=== PATIENT | female | born 1940 | race Caucasian/White ===

== ENCOUNTER 2018-07-25 16:48 | Emergency (ER) | payer OTHER ==
[2018-07-25] MEDS ORDERED: LABETALOL HCL 5 MG/ML 20 ML MDV IVP ONE (17:28)
--- NOTE | 2018-07-25 17:41 | EDPHY ---
H & P Time Seen by Provider: 07/25/18 17:25 HPI/ROS: HPI Chest pain. High blood pressure. 77-year-old female by private vehicle with her . This patient reports that after eating lunch at approximately 1:00 p.m. Today she developed a squeezing substernal chest pain with radiation up into her jaw. She reports that this lasted about 30 min and then resolved. She reports that her blood pressure has been unusually high this afternoon. She denies any other associated signs or symptoms. She has a prior history of hypertension and has been on lisinopril for 7 years but off of that for the last 6 months. She has a family history of coronary artery disease. Denies any personal history of coronary artery disease. No other risk factors except for age and hypertension. She reports her blood pressures were in the 200 systolic at home. ROS: Constitutional: No fever, no chills. No weakness. Eyes: No discharge. No changes in vision. ENT: No sore throat. No nasal congestion or rhinorrhea. Respiratory: No cough. No shortness of breath. Cardiac: As above, no palpitations. Gastrointestinal: No abdominal pain, no vomiting, no diarrhea. Genitourinary: No hematuria. No dysuria or increased frequency with urination. Musculoskeletal: No back pain. No neck pain. No myalgias or arthralgias. Skin: No rashes. Neurological: No headache. No focal weakness or altered sensation. Past medical history: As above. Polymyalgia. Social history: Nonsmoker. Here with her . No alcohol. Physical Exam: General Appearance: Alert, no distress. This patient is responding to questions appropriately and in full sentences. This patient appears well- hydrated and well-nourished. Eyes: Pupils equal and round no pallor or injection. No lid edema, erythema or injection. Respiratory: There are no retractions, lungs are clear to auscultation with good air movement bilaterally. Cardiovascular: Regular rate and rhythm. No murmur appreciated. Gastrointestinal: Abdomen is soft and nontender, no masses, bowel sounds normal. No focal tenderness at McBurney's point. No Yuan sign. Neurological: Motor sensory function is grossly intact. Cranial nerves are normal. Gait is normal. Skin: Warm and dry, no rashes. Musculoskeletal: Neck is supple and nontender. Extremities are symmetrical. No lower extremity edema. No significant lower extremity edema. All joints range without pain or impingement. Psychiatric: No agitation. No depression. Database: EKG: EKG time is 5:13 p.m.; EKG shows a sinus rhythm with a ventricular rate of 87, there is an underlying right bundle branch block. The [place], QT intervals are within normal limits. There are no ST-T wave changes indicative of ischemic or injury pattern. No evidence of right heart strain. Interpreted by me. Imaging: Chest x-ray AP portable; probable large heart. Questionable pulmonary nodule measuring 11 mm verses nipple. No evidence of infiltrate or pneumothorax. No acute cardiopulmonary disease process noted. Discussed with staff radiologist Dr. Kashif Matta who recommends a PA and lateral with nipple markers. This will be ordered. Procedures: Emergency department course: Triage vital signs reviewed. Initial blood pressure 213/100. Vital signs otherwise normal. IV was placed. She was placed on a ekg monitor tech. EKG obtained and reviewed by myself. She is currently asymptomatic. She will be given IV labetalol at 20 mg every 10 min up to x3 to target blood pressure of 160-170 systolic. She currently does not have any chest pain. She was given 324 mg of chewed aspirin. Heart score of 4. Moderate risk. 6:00 p.m., patient's blood pressure is 181/90. She has received 20 mg of IV labetalol about 5 min ago. She is asymptomatic. 7:00 p.m., the patient was re-evaluated. She has been given an additional 20 mg dose of IV labetalol. Blood blood pressure currently 163/77. I discussed the results of her emergency department workup with her and family who are now in the room. I have recommended admission. She is at this time declining admission. Her family wants her to be admitted. They will talk deny will reassess shortly. 7:20 p.m., I re-evaluated with the patient and daughter and family. The patient is refusing admission. In my professional opinion she understands the risks to her health of refusing admission. In my professional opinion she has capacitance to make decisions for herself. Despite the urging of myself and her daughter she still declines admission. I will have her follow up with our cardiology group within the next 2-3 days for re-evaluation. I will start her on lisinopril at 10 mg daily which she has been on in the past for her high blood pressure. They are staying here by the emergency department and can easily return here or to [facility] if her chest pain returns. The patient and family understand follow-up. Return to emergency department precautions thoroughly reviewed with them. All of their questions were answered. The patient was discharged in good condition with family. Differential Diagnosis: The differential diagnosis on this patient includes but is not limited to uncontrolled hypertension, hypertensive urgency, angina. This represents a partial list of diagnoses considered. These considerations are based on history , physical exam, past history, reassessment and diagnostic testing. Smoking Status: Never smoked Constitutional: Initial Vital Signs Temperature (C) 36.9 C 07/25/18 16:59 Heart Rate 84 07/25/18 16:59 Respiratory Rate 16 07/25/18 16:59 Blood Pressure 213/100 H 07/25/18 16:59 O2 Sat (%) 94 07/25/18 16:59 O2 Delivery Mode Room Air Allergies/Adverse Reactions: No Known Allergies Allergy (Unverified 07/25/18 17:41) Home Medications: Medication Instructions Recorded Advair 100/50 (*) 07/25/18 Lisinopril 10 mg PO DAILY #10 tablet 07/25/18 predniSONE 07/25/18 Medical Decision Making - Diagnostics Imaging Results: Imaging Impressions Chest X-Ray 07/25/18 17:26 Impression: 1. Possible cardiomegaly without decompensation. Consider obtaining a routine PA and lateral chest when the patient is clinically able, to better evaluate the cardiothoracic ratio. 2. Right lower lung zone nodule. This could represent something in the right fifth rib, the patient's nipple or a true pulmonary nodule. Recommend repeat chest x-ray with nipple markers. Results discussed with Dr. Reyes at 5:48 PM. Chest X-Ray 07/25/18 17:56 Impression: 1. Persistent possible nodule overlying the anterior right 5th rib. CT chest is recommended for further evaluation. 2. Cardiomegaly without failure. 3. Age-indeterminate T5 and L1 compression fractures. 4. Additional findings as above. Findings discussed with Tiffanie Reyes MD 07/25/2018 at 18:51. - Data Points Laboratory Results: 07/25/18 07/25/18 19:01 17:30 POC Hgb 14.6 gm/dL gm/dL (12.6-16.3) POC Hct 43 % % (38-47) POC Sodium 140 mEq/L mEq/L (135-145) POC Potassium 4.0 mEq/L mEq/L (3.3-5.0) POC Chloride 102 mEq/L mEq/L (97-110) POC BUN 25 mg/dL H mg/dL (7-23) POC Creatinine 0.8 mg/dL mg/dL (0.6-1.0) POC Glucose 87 mg/dL mg/dL (70-100) POC Troponin I 0.00 ng/mL ng/mL (0.00-0.08) Medications Given: Discontinued Medications Aspirin (Aspirin) 324 mg PO EDNOW ONE Stop: 07/25/18 17:45 Last Admin: 07/25/18 18:44 Dose: 324 mg Labetalol HCl (Trandate Injection) 20 mg IVP EDNOW ONE Stop: 07/25/18 17:29 Last Admin: 07/25/18 17:43 Dose: 20 mg Point of Care Test Results: Chemistry 07/25/18 07/25/18 19:01 17:30 POC Sodium 140 mEq/L mEq/L (135-145) POC Potassium 4.0 mEq/L mEq/L (3.3-5.0) POC Chloride 102 mEq/L mEq/L (97-110) POC BUN 25 mg/dL H mg/dL (7-23) POC Creatinine 0.8 mg/dL mg/dL (0.6-1.0) POC Glucose 87 mg/dL mg/dL (70-100) POC Troponin I 0.00 ng/mL ng/mL (0.00-0.08) ISTAT H&H 07/25/18 19:01 POC Hgb 14.6 gm/dL gm/dL (12.6-16.3) POC Hct 43 % % (38-47) Departure - Departure Disposition: Home, Routine, Self-Care Clinical Impression: Chest pain, Hypertensive urgency Condition: Good Instructions: Chest Pain (ED) Additional Instructions: Read and follow provided instructions. Follow-up with your primary care physician when he returns home to [place]. Follow-up with our cardiology group, [facility], within the next 2-3 days for re-evaluation of your chest pain, and blood pressure. Call their office at 8:30 a.m. Tomorrow morning. Explain this is for an emergency department follow- up and that your seen in the emergency department tonight for chest pain and severely elevated blood pressure. Take medication as prescribed for blood pressure control. Return to the emergency department for return of chest pain, shortness of breath , headache, difficulty breathing or other serious concerns. Referrals: NONE *PRIMARY CARE P,. [Primary Care Provider] - As per Instructions Prescriptions: Lisinopril 10 mg PO DAILY #10 tablet
[2018-07-25] MEDS ORDERED: ASPIRIN 81 MG CHEWABLE TAB PO ONE (17:44)
[2018-07-25 19:30] VITALS: BP 191/96
--- NOTE | 2018-07-25 22:50 | CPEKG ---
Test Reason : OPEN Blood Pressure : / mmHG Vent. Rate : 087 BPM Atrial Rate : 087 BPM P-R Int : 219 ms QRS Dur : 123 ms QT Int : 433 ms P-R-T Axes : 054 078 048 degrees QTc Int : 521 ms Sinus rhythm Atrial premature complex Borderline prolonged CA interval Probable left atrial enlargement IVCD, consider atypical RBBB Confirmed by Tiffanie Reyes ([id number]) on 07/25/2018 10:49:59 PM Referred By: Confirmed By:Tiffanie Reyes
== END 2018-07-25 19:53 | disposition home or self-care (01) ==
LOC: CED 16:48
DX: R07.9 Chest pain, unspecified (principal); R03.0 Elevated blood-pressure reading, without diagnosis of hypertension; J98.4 Other disorders of lung; I51.7 Cardiomegaly
CPT/HCPCS: 71045-PO; 71046-PO; 82435-PO; 82565-PO; 82947-PO; 84132-PO; 84295-PO; 84484-PO; 84520-PO; 85014-PO; 96374